=== PATIENT | female | born 1950 | race Caucasian/White ===

== ENCOUNTER 2018-06-05 10:19 | Day surgery (SDC) | payer OTHER ==
[~2018-06-05] VITALS: Ht 160 cm; Wt 65.2 kg
[2018-06-05 11:11] VITALS: Ht 160 cm; Wt 65.2 kg
[2018-06-05] MEDS ORDERED: GLUCOPHAGE (11:19)
[2018-06-05] MEDS ORDERED: MICROZIDE (11:20)
[2018-06-05] MEDS ORDERED: ENALAPRIL (11:20)
[2018-06-05] MEDS ORDERED: LOPID (11:20)
--- NOTE | 2018-06-05 11:23 | PREAC ---
Date/Time of Note Date/Time of Note DATE: 06/05/18 TIME: 11:22 Anesthesia Eval and Record Evaluation Time Pre-Procedure Interview DATE: 06/05/18 TIME: 11:22 Age 67 Sex female NPO: 8 hrs Preoperative diagnosis screening Planned procedure colonoscopy Past Medical History Past Medical History: Includes Cardio: HTN, Dyslipidemia Endo: Diabetes Surgery & Anesthesia Issues No known issue Meds Anticoagulation: No Beta Katie within 24 hr: No Reason Beta Katie not given: Pt. not on B-Katie Reported Medications [Enalapril] No Conflict Check 06/05/18 [Lopid] No Conflict Check 06/05/18 [Microzide] No Conflict Check 06/05/18 [Glucophage] No Conflict Check 06/05/18 Meds reviewed: Yes Allergies Coded Allergies: No Known Allergy (Unverified , 06/05/18) Allergies Reviewed: Yes Labs/Studies Labs Reviewed: Reviewed by anesthesiologist test: Negative Studies: ECG, CXR Pre-procedure Exam Airway: Adequate mouth opening, Adequate thyromental dist Mallampati: Mallampati III Teeth: Normal Lung: Normal Heart: Normal ASA Physical Status ASA physical status: 3 Emergency: None Planned Anesthetic General/MAC: MAC Planned Pain Management Parenteral pain med Pre-operative Attestations Prior to commencing anesthesia and surgery, the patient was re-evaluated, there was verification of: *The patient's identity *The results of appropriate recent lab work and preoperative vital signs *The above evaluation not changing prior to induction *Anesthetic plan, risk benefits, alternative and complications discussed with patient/family; questions answered; patient/family understands, accepts and wishes to proceed. VERONICA ZAVALA MD Jun 05, 2018 11:23
[2018-06-05 11:35] VITALS: BP 185/77; PULSE 90; RESP 18
[2018-06-05] MEDS ORDERED: PROPOFOL 40 ML ONE (11:39)
[2018-06-05 11:55] VITALS: BP_SYST 100; BP_SYST 83; BP_SYST 98; BP_DIAS 54; BP_DIAS 55; BP_DIAS 72; PULSE 72; RESP 20
--- NOTE | 2018-06-05 12:10 | PAC ---
Date/Time of Note Date/Time of Note DATE: 06/05/18 TIME: 12:10 Post-Anesthesia Notes Post-Anesthesia Note Last documented vital signs Vital Signs Date Temp Pulse Resp B/P (MAP) Pulse Ox O2 O2 Flow FiO2 Time Delivery Rate 06/05/18 98.0 90 18 185/77 98 Room Air 11:35 (113) Activity: WNL Respiratory function: WNL Cardiovascular function: WNL Mental status: Baseline Pain reasonably controlled: Yes Hydration appropriate: Yes Nausea/Vomiting absent: Yes VERONICA ZAVALA MD Jun 05, 2018 12:10
[2018-06-05 12:20] VITALS: BP 106/58; PULSE 66; RESP 20
[2018-06-05 12:37] VITALS: BP 129/63; PULSE 71; RESP 19
--- NOTE | 2018-06-07 08:07 | PAC ---
Date/Time of Note Date/Time of Note DATE: 06/07/18 TIME: 08:07 Post-Anesthesia Notes Post-Anesthesia Note Last documented vital signs Vital Signs Date Temp Pulse Resp B/P (MAP) Pulse Ox O2 O2 Flow FiO2 Time Delivery Rate 06/05/18 97.7 71 19 129/63 99 Room Air 12:37 (85) Activity: WNL Respiratory function: WNL Cardiovascular function: WNL Mental status: Baseline Pain reasonably controlled: Yes Hydration appropriate: Yes Nausea/Vomiting absent: Yes VERONICA ZAVALA MD Jun 07, 2018 08:07
== END 2018-06-05 12:23 | disposition home or self-care (01) ==
LOC: GIL 10:19
PROVIDERS: ATTEND Internal Medicine Gastroenterology
DX: Z12.11 Encounter for screening for malignant neoplasm of colon (principal); K64.9 Unspecified hemorrhoids; I10 Essential (primary) hypertension; E78.5 Hyperlipidemia, unspecified; E11.9 Type 2 diabetes mellitus without complications